=== PATIENT | male | born 1935 | race Caucasian/White ===

== ENCOUNTER 2022-08-02 12:13 | Emergency (ER) | payer MEDICARE ==
[2022-08-02] MEDS ORDERED: SODIUM CHLORIDE 0.9% 500 ML 500 ML IV ONE (13:58)
--- NOTE | 2022-08-02 14:36 | Emergency Department Report ---
HPI - General Chief Complaint: Urogenital-Male PUI?: No Time Seen by Provider: 08/02/22 13:37 - HPI HPI: 87-year-old male on hospice, with multiple medical comorbidities, documented DO NOT RESUSCITATE order, sent from long term facility, for bleeding from his penis. Patient has a history of dementia and so HPI from patient's perspective is limited. There is no documentation from the detention concerning how long the patient has been having symptoms, and if he has been having any prior history of similar symptoms in the past. Patient denies any pain at this time and is requesting to be returned to his nursing facility. Pain 0 out of 10 ED Past Medical Hx - Past Medical History Previous Medical History?: Yes Hx Hypertension: Yes Hx CVA: Yes Hx Congestive Heart Failure: Yes Hx COPD: Yes Hx Dementia: Yes - Medications Home Medications: Home Medications Medication Instructions Recorded Confirmed Last Taken Type cephALEXin [Keflex] 500 mg PO Q6HR #40 capsule 08/02/22 Unknown Rx ED Review of Systems ROS: Stated complaint: PENILE BLEEDING Other details as noted in HPI Comment: Unobtainable due to pts medical conditions Physical Exam - Physical Exam Vital Signs: Vital Signs 08/02/22 12:39 Temperature 97.6 F Pulse Rate 62 Respiratory 18 Rate Blood Pressure 94/60 [Left] O2 Sat by Pulse 99 Oximetry Physical Exam: Gen: pt is well appearing, no acute distress, asleep but easily arousabl;e HEENT: Normocephalic atraumatic pupils equally round and reactive to light extraocular muscles intact sclera anicteric Neck: Full range of motion, no midline spinal tenderness palpation, no JVD, no carotid bruits, no nuchal rigidity CVS: S1-S2 regular rate and rhythm with no gallops rubs or murmurs, chest wall nontender Pulmonary: Clear to auscultation bilaterally, no wheezes rales or rhonchi Abdomen: Soft nondistended nontender no guarding or rebound tenderness, no palpable deformities or step-offs, normal active bowel sounds, no hepatosplenomegaly, no pulsatile masses : Dried appearing blood in patient's diaper, chronic appearing laceration to patient's inferior aspect of his penile urethral meatus, no active blood emanating from penis at this time, no laceration,, testicles symmetric and nonenlarged, no visible foreign bodies, Extremities: No cyanosis no clubbing no edema, intact distal peripheral pulses, Integumentary: Skin normal, no petechia no purpura no abscess no lacerations no evidence of trauma no evidence of infection Neuro: Patient asleep but easily arousable, and upon being aroused he is awake and alert to person alone, patient is demented, moving all extremities Psych: Calm cooperative, mood affect normal ED Course Vital Signs 08/02/22 12:39 Temperature 97.6 F Pulse Rate 62 Respiratory 18 Rate Blood Pressure 94/60 [Left] O2 Sat by Pulse 99 Oximetry - Consultations Consultation #1: 08/02/22 16:42 [facility]. I spoke with Nurse Nan. She verbalizes that she does not take care of the patient primarily but has been involved in his care. Patient's last set of seru m labs was from March 2022 at which time the patient's hemoglobin was 8 and hematocrit was 24.7. White blood cell count, platelets and basic metabolic panel were all unremarkable. Per her review of the pt's chart, the pt is on aspirin but is not on any anticoagulants and has not been given NSAIDS recently. 08/02/22 20:40: Consultation #2: 08/02/22 20:36 Urology @ [facility] 08/02/22 21:46: Return call received from , on-call urologist at [facility]. There is currently no on-call urology service at this hospital on today and therefore I am not able to speak to anyone and this information was provided to her. Case was reviewed with her. Per her verbal report, patient may have had a prior chronic indwelling Wood catheter and it was removed or pulled out, causing bleeding in the used to her urethra in retrograde clots. An allternative is patient may have an underlying bladder mass which was documented on the CAT scan and is on aspirin, as well as the patient possibly having a UTI which may be triggering hematuria. She advises the pt to be seen by urology and given abx. Labs were reviewed with her. Pt's hb/hct and platelets remains stable. Per her verbal report, the end goals with family will need to be discussed on an outpatient basis. ED Medical Decision Making - Lab Data Result diagrams: 08/02/22 18:31 08/02/22 19:16 - Radiology Data Radiology results: report reviewed - Medical Decision Making 87-year-old male with multiple medical comorbidities, sent from long term [facility] for hematuria. Vital signs stable. Patient denies any pain while here and he remains comfortable and well-appearing on the room with reassessments. Initial hemoglobin hematocrit are low and we had no documented prior hemoglobin hematocrit available for comparison. Repeat hemoglobin hematocrit done several hours later and it improved without intervention. Serum labs otherwise grossly unremarkable. Although patient had no signs or symptoms of respiratory decompensation in the setting of the pleural effusions found on his CT scan of the abdomen pelvis, he was still given furosemide for diuresis which he tolerated without difficulty and he remained hemodynamically unstable. Wood catheter placed by emergency department nurse. Patient's bladder was irrigated and hematuria significantly improved. We do not have urology on-call at this facility and therefore I spoke to the on-call urologist.Dr. Mcdaniels. See patient's electronic health record for my documented discussion with her. Patient was observed for multiple hours here in the emergency department. He was gait he remained hemodynamically stable and neurovascular intact. Hematuria significantly improved with bladder irrigation performed by the emergency department nurse,Dacia. Patient given Rocephin for broad-spectrum antibiotic coverage. Patient stable for discharge back to his long term facility. Prescription for Keflex 500 mg by mouth 4 times daily x7 to 10 days given. snf advised to have the patient undergo repeat hemoglobin hematocrit as well as have the patient referred to urology for outpatient evaluation so that outpatient and goal of care may be discussed with the patient's family via the SNF medical dosimetrist as well as the outpatient evaluating urologist. No further emergent work-up warranted at this time. Patient stable for discharge back to long term facility Critical care attestation.: If time is entered above; I have spent that time in minutes in the direct care of this critically ill patient, excluding procedure time. ED Disposition Clinical Impression: Hematuria, Bladder mass Disposition: 03 [facility] Is pt being admited?: No Does the pt Need Aspirin: No Condition: Stable Instructions: Hematuria, Adult Additional Instructions: Please have this patient seen by a urologist, as soon as possible, to determine if there is an underlying bladder mass present. The family will need to consulted and it determined if they want the patient to undergo surgery to further evaluate the cause of his bloody urine. Call Dr. Frank's office to have Mr. Patino seen by either him or his urology partner. The number is listed in Mr. Patino's discharge summary. Have his hemoglobin/Hematocrit rechecked within 2-3 days to verify it is remaining stable. This can be done by the doctor overseeing his care at the detention. It is very important that his hemoglobin be rechecked within the time frame mentioned above. As a precaution, he has been placed on oral antibiotics. Give him Keflex 500 mg by mouth every 6 hours for the next 10 days. Be sure he is completing his entire prescription It is recommended that he be given 1 L of normal saline daily for the next 2 to 3 days, at a rate of 125 250 cc/h. Please make sure that his respiratory rate is being monitored carefully to make sure he is not developing CHF exacerbation in the setting of him receiving intravenous fluids to clear out his hematuria. Observe his symptoms very carefully. Have him return to the nearest emergency department soon as possible if he develops weakness, dizziness, lightheadedness, worsening blood in his urine, any fever of 100.4F or higher, or if any other new worrisome symptoms develop. Prescriptions: cephALEXin [Keflex] 500 mg PO Q6HR #40 capsule Referrals: ALIS COPE MD [Primary Care Provider] - 3-5 Days ART FRANK MD [Staff Physician] - [facility]
[2022-08-02 15:08] LABS: Basophils % (Auto) 0.8 % (0.0-1.8); Eosinophils # (Auto) 0.2 K/mm3 (0.0-0.4); Eosinophils % (Auto) 2.7 % (0.0-4.3); Lymphocytes # (Auto) 0.9 K/mm3 (1.2-5.4); Lymphocytes % (Auto) 15.4 % (13.4-35.0); Mean Corpuscular HGB Conc 29 % (32-34); Mean Corpuscular Volume 96 fl (84-94); Monocytes # (Auto) 0.5 K/mm3 (0.0-0.8); Monocytes % (Auto) 9.1 % (0.0-7.3); Platelet Count 171 K/mm3 (140-440); Red Blood Count 2.65 M/mm3 (3.65-5.03)
[2022-08-02 15:16] LABS: Hematocrit 25.4 % (35.5-45.6); Hemoglobin 7.4 gm/dl (11.8-15.2); Red Cell Distribution Width 21.4 % (13.2-15.2)
[2022-08-02 15:32] LABS: INR 1.01 (0.87-1.13)
[2022-08-02 15:33] LABS: Partial Thromboplastin Time 30.2 Sec. (24.2-36.6)
[2022-08-02] MEDS ORDERED: SODIUM CHLORIDE 0.9% 1000 ML 1,000 ML IV ONE ×3 (18:50→20:08)
[2022-08-02 19:01] LABS: Basophils % (Auto) 0.6 % (0.0-1.8); Eosinophils # (Auto) 0.2 K/mm3 (0.0-0.4); Eosinophils % (Auto) 3.1 % (0.0-4.3); Lymphocytes # (Auto) 1.4 K/mm3 (1.2-5.4); Lymphocytes % (Auto) 21.8 % (13.4-35.0); Mean Corpuscular HGB Conc 29 % (32-34); Mean Corpuscular Volume 96 fl (84-94); Monocytes # (Auto) 0.7 K/mm3 (0.0-0.8); Monocytes % (Auto) 10.9 % (0.0-7.3); Platelet Count 165 K/mm3 (140-440); Red Blood Count 2.95 M/mm3 (3.65-5.03)
[2022-08-02 19:10] LABS: Hematocrit 28.4 % (35.5-45.6); Hemoglobin 8.2 gm/dl (11.8-15.2); Red Cell Distribution Width 21.6 % (13.2-15.2)
[2022-08-02 20:29] LABS: BUN/Creatinine Ratio 23; Blood Urea Nitrogen 21 mg/dL (9-20); Calcium 7.7 mg/dL (8.4-10.2); Hemolysis Index 12
--- NOTE | 2022-08-02 20:29 | Cat Scan Report ---
CT ABDOMEN AND PELVIS WITHOUT CONTRAST INDICATION / CLINICAL INFORMATION: dementia, gross hematuria. TECHNIQUE: Axial CT images were obtained through the abdomen and pelvis without IV contrast. All CT scans at this location are performed using CT dose reduction for ALARA by means of automated exposure control. COMPARISON: None available. FINDINGS: LOWER CHEST: Trace pericardial effusion. Mild bilateral pleural effusions with right greater than lef t compressive atelectasis. Partially visualized consolidation within the left lung. Severe emphysema throughout the aerated portions of lungs. LIVER: No significant abnormality. GALLBLADDER: No significant abnormality. BILE DUCTS: No significant abnormality. PANCREAS: No significant abnormality. SPLEEN: No significant abnormality. ADRENALS: No significant abnormality. RIGHT KIDNEY / URETER: No significant abnormality. Simple cysts. LEFT KIDNEY / URETER: No significant abnormality. Simple cysts. STOMACH / SMALL BOWEL: No significant abnormality. COLON: No significant abnormality. APPENDIX: No significant abnormality. PERITONEUM: No free fluid. No free air. No fluid collection. LYMPH NODES: No significant adenopathy. AORTA / ARTERIES: Severe atherosclerotic calcification without acute abnormality. IVC / VEINS: No significant abnormality. URINARY BLADDER: Only catheter is in place. There is soft tissue density within the lumen of the blad otoniel which may represent mass and/or blood. REPRODUCTIVE ORGANS: The prostate is enlarged. ADDITIONAL FINDINGS: None. SKELETAL SYSTEM: No significant abnormality. IMPRESSION: 1. The bladder is prominent despite the presence of a Wood catheter. There is soft tissue density wi thin the lumen of the bladder which may represent a neoplastic mass and/or blood. 2. Bilateral pleural effusions and trace pericardial effusion. 3. Partially visualized consolidation within the left lung may represent pneumonia. Signer Name: Adrián Grace MD Signed: 08/02/2022 8:25 PM Workstation Name: [facility]
[2022-08-02 20:44] LABS: INR 0.97 (0.87-1.13)
[2022-08-02 20:45] LABS: Partial Thromboplastin Time 32.4 Sec. (24.2-36.6)
[2022-08-02] MEDS ORDERED: FUROSEMIDE 40 MG/4 ML INJ IV ONE (20:47)
[2022-08-02] MEDS ORDERED: cefTRIAXone/NS 1 GM/50 ML 1 GM/50 ML BAG IV ONE (21:16)
[2022-08-02 22:03] VITALS: BP 160/78
[2022-08-02] MEDS ORDERED: SODIUM CHLORIDE 0.9% IRR 500 ML BOTTLE IR ONE (22:43)
== END 2022-08-03 01:12 ==
LOC: ED 12:13
DX: R31.9 Hematuria, unspecified (principal); C67.9 Malignant neoplasm of bladder, unspecified; I11.0 Hypertensive heart disease with heart failure; I50.9 Heart failure, unspecified; J44.1 Chronic obstructive pulmonary disease with (acute) exacerbation; Z86.73 Personal history of transient ischemic attack (TIA), and cerebral infarction without residual deficits; F03.90 Unspecified dementia, unspecified severity, without behavioral disturbance, psychotic disturbance, mood disturbance, and anxiety
CPT/HCPCS: 36415; 74176; 80048; 82962; 85025; 85610; 85730; 96361; 96365; 96375; 99284; J0696; J1940; J7030; J7040